=== PATIENT | female | born 1975 | race Caucasian/White ===

== ENCOUNTER 2024-05-13 12:17 | Emergency (ER) | payer BC ==
[~2024-05-13] VITALS: Ht 162.6 cm; Wt 68.0 kg
[2024-05-13 12:57] VITALS: BP_SYST 122; PULSE 58; RESP 18; TEMP 98.2; O2SAT 99
[2024-05-13] MEDS: ACETAMINOPHEN 325 MG TABLET PO ONE (14:25)
[2024-05-13 15:55] VITALS: BP_SYST 122; PULSE 58; RESP 18; TEMP 98.2; O2SAT 99
== END 2024-05-13 15:51 | disposition home or self-care (01) ==
LOC: SED 12:17
DX: I83.813 Varicose veins of bilateral lower extremities with pain (principal); M79.661 Pain in right lower leg; Z98.890 Other specified postprocedural states
CPT/HCPCS: 81025; 93970; 99284